=== PATIENT | male | born 1960 | race Caucasian/White ===

== ENCOUNTER 2018-07-31 11:20 | Day surgery (SDC) | payer MEDICARE, MEDICAID, BC ==
[~2018-07-31 11:20] MED LIST: CEFAZOLIN 2 GM/50 ML (PMX) 50 ML IVPB; SOD CHLORIDE 0.9% 1,000 ML IV
[2018-07-31] MEDS ORDERED: LABETALOL HCL 20MG INJ IV (12:30)
[2018-07-31] MEDS ORDERED: hydrALAzine 20 MG INJ IV (12:30)
== END 2018-07-31 15:28 | disposition left against medical advice (07) ==
LOC: SDS 11:20
DX: M25.842 Other specified joint disorders, left hand (principal); Z53.8 Procedure and treatment not carried out for other reasons